=== PATIENT | female | born 1995 | race Caucasian/White ===

== ENCOUNTER 2023-10-03 14:44 | Emergency (ER) | payer MEDICAID, SELFPAY ==
--- NOTE | ~2023-10-03 | US_ITS ---
EXAMINATION: US OB <=14 wk fetus w TV INDICATION: 8 weeks, bleeding/cramping TECHNIQUE: Sonography of the pelvis was performed by transabdominal and transvaginal techniques. COMPARISON: None. RESULT: Uterus: 10.0 x 4.8 x 6.5 cm. Anteverted. Endometrial complex thickness 1.2 cm, somewhat irregular. Ho mogenous myometrium. Intrauterine gestational sac: Not seen. Embryo: Not seen. Right ovary: 3.4 x 1.7 x 3.0 cm. Vascular flow is present. No adnexal mass. Left ovary: 3.8 x 1.7 x 1.4 cm. Vascular flow is present. No adnexal mass. Pelvis free fluid: None. IMPRESSION: of unknown location. Findings are suspicious for but not diagnostic of failed , ba sed on the LMP and clinical history. No sonographic findings of ectopic . Recommend close clinical and laboratory follow-up and follow-up sonography as clinically indicated. Reviewed, dictated and finalized at location K. IMPRESSION: of unknown location. Findings are suspicious for but not diagnostic o f failed , based on the LMP and clinical history. No sonographic findings of ectopic . Recommend close clinical and laboratory follow-up and follow-up sonography as c linically indicated.
[2023-10-03 15:13] VITALS: BP 107/61; PULSE 77; RESP 16; TEMP 36.4; O2SAT 100
--- NOTE | 2023-10-03 16:08 | ED.PREGNANCY ---
HPI - General Chief complaint: Vaginal Bleeding <GEETA Collins Last Filed: 10/03/23 16:15> Stated complaint: abdominal cramping <GEETA Collins Last Filed: 10/03/23 16:15> Time Seen by Provider: 10/03/23 16:08 <GEETA Collins Last Filed: 10/03/23 16:15> Focused HPI: Patient is a 27 y/o female who presents to the ED with c/o vaginal bleeding. Patient is , hx of miscarriage, approx 8 weeks gestation by LNMP. Reports she has had some intermittent mild cramping in her lower abdomen and lower back for the past 1 week. Last night, she began having vaginal bleeding with clots, has persisted since then. States bleeding has been heavy today, has gone through approx 7 pads. She has not had an US yet for this . Is scheduled to see Dr. Bowers with [facility] on 10/04. She denies fevers, dysuria, hematuria, N/V. GENERAL: Well-appearing, obese with BMI of 35.6, and in no acute distress. HEAD: Normocephalic, atraumatic. CHEST: Clear to auscultation. ?No respiratory distress. HEART: Regular rate and rhythm.? NEURO: ?Alert and oriented x3. Patient screened in triage and initial orders placed.? ?Additional care and disposition to be based upon?diagnostic testing and treatment. <GEETA Collins Last Filed: 10/03/23 16:15> Source: patient <GEETA Collins Last Filed: 10/03/23 16:15> Mode of arrival: ambulatory <GEETA Collins Last Filed: 10/03/23 16:15> Limitations: no limitations <GEETA Collins Last Filed: 10/03/23 16:15> Review of Systems Review of Systems: All systems as dictated in HPI <GEETA Kim Last Filed: 10/04/23 03:10> Exam Narrative: GENERAL: Well-appearing, well-nourished, and in no acute distress. HEAD: Normocephalic, atraumatic. EYES: PERRLA and EOMI. ENT: Nares clear, no rhinorrhea or epistaxis. Mucous membranes moist. Oropharynx without tonsillar hypertrophy exudate or other lesions. NECK: Supple. No adenopathy or masses. CHEST: No respiratory distress. Clear to auscultation. No wheezes rales or rhonchi HEART: Regular rate and rhythm. No murmur heard. Normal peripheral pulses. ABDOMEN: Soft, nontender, nondistended, normal active bowel sounds. MSK: Normal range of motion. No edema. SKIN: Warm, dry, no rash. NEURO: Alert and oriented x4. No focal deficits. PSYCH: Normal mood and affect. <GEETA Kim Filed: 10/04/23 03:10> Course Vital Signs Vital signs: Vital Signs Temperature 97.5 F L 10/03/23 15:13 Pulse Rate 77 10/03/23 15:13 Respiratory Rate 16 10/03/23 15:13 Blood Pressure 107/61 10/03/23 15:13 Pulse Oximetry 100 10/03/23 15:13 Temperature 98.1 F 10/03/23 19:50 Pulse Rate 69 10/03/23 19:50 Respiratory Rate 17 10/03/23 19:50 Blood Pressure 118/65 10/03/23 19:50 Pulse Oximetry 100 10/03/23 19:50 <GEETA Collins Filed: 10/03/23 16:15> Vital Signs Temperature 97.5 F L 10/03/23 15:13 Pulse Rate 77 10/03/23 15:13 Respiratory Rate 16 10/03/23 15:13 Blood Pressure 107/61 10/03/23 15:13 Pulse Oximetry 100 10/03/23 15:13 Temperature 98.1 F 10/03/23 19:50 Pulse Rate 69 10/03/23 19:50 Respiratory Rate 17 10/03/23 19:50 Blood Pressure 118/65 10/03/23 19:50 Pulse Oximetry 100 10/03/23 19:50 <GEETA Kim Filed: 10/04/23 03:10> MDM - OB/Uterine Contractions MDM Narrative Medical decision making narrative: MSE by [facility] in triage. <Megan Bess PA-C - Last Filed: 10/03/23 16:15> MSE by [facility] in triage. This is a 27-year-old female who is presenting for vaginal bleeding and around 8 weeks . Vitals are normal. Exam is benign overall. No evidence of significant hemorrhage. symptoms and presentation today are consistent with spontaneous miscarriage which she has had in the past.
[2023-10-03 16:34] LABS: Basophils Absolute Auto 0.1 K/mm3 (0.0-0.1); Basophils Percent Auto 0.7 % (0.2-1.2); Eosinophils Absolute Auto 0.2 K/mm3 (0-0.3); Hematocrit 38.6 % (37.0-47.0); Hemoglobin 13.2 g/dL (12.0-15.0); Immature Granulocyte Absolute 0.13 K/mm3 (0.00-0.031); Immature Granulocyte Percent A 1.1 % (0-0.5); Lymphocytes Absolute Auto 3.31 K/mm3 (0.9-3.2); Lymphocytes Percent Auto 27.3 % (18.3-44.2); Mean Corpuscular HGB Conc 34.2 g/dl (32-36); Mean Corpuscular Hemoglobin 32.1 pg (26-34); Mean Corpuscular Volume 93.9 fl (80-100); Mean Platelet Volume 9.6 fl (7.4-10.4); Monocytes Absolute Auto 0.8 K/mm3 (0.1-0.6); Monocytes Percent Auto 6.5 % (2.6-8.5); Neutrophils Absolute Auto 7.6 K/mm3 (1.3-6.7); Neutrophils Percent Auto 62.4 % (45.5-73.1); Platelet Count Result 238 k/mm3 (150-375); Red Blood Count 4.11 M/mm3 (4.2-5.4); Red Cell Distribution Width 11.7 % (11.5-14.5); White Blood Count 12.1 K/mm3 (4.5-10.0)
[2023-10-03 16:43] LABS: Alanine Aminotransferase 17 U/L (6-35); Albumin Level 4.1 g/dL (3.5-5.1); Alkaline Phosphatase 50 U/L (38-126); Anion Gap 10 mmol/L (4-12); Aspartate Amino Transferase 18 U/L (14-36); Bilirubin,Total 0.4 mg/dL (0.2-1.3); Blood Urea Nitrogen 4 mg/dL (7-17); Carbon Dioxide 25 mmol/L (22-30); Chloride 102 mmol/L (98-107); Estimated CRCL calculation 142 ml/min; Estimated Glomerular Filt Rate > 60; Glucose 94 mg/dL (65-110); Potassium 3.5 mmol/L (3.4-5.0); Sodium 137 mmol/L (137-145)
[2023-10-03 16:45] LABS: Prothrombin Time 13.6 Seconds (11.1-14.7)
[2023-10-03 17:14] LABS: Bacteria Urine 4+ /hpf; Need Manual Microscopic Reviewed; RBC Urine >100 /hpf (0-2); Squamous Epithelial Cell Urine Many /hpf (Few); WBC Urine >100 /hpf (0-3)
[2023-10-03 17:16] LABS: Add Urine Microscopic? YES; Appearance Urine Turbid (Clear); Bilirubin Urine 2+ (Negative); Blood Urine 3+ (Negative); Color Urine Red (Yellow); Glucose Urine UA Negative (Negative); Ketones Urine Negative (Negative); Leukocyte Esterase Ur 2+ LEU/UL (Negative); Nitrate Urine Negative (Negative); Protein Urine 3+ mg/dL (Negative); Specific Grav Ur 1.025 (1.001-1.035); Urobilinogen Urine 0.2 mg/dL (<2.0)
[2023-10-03 18:37] VITALS: BP 124/70; PULSE 60; RESP 16; O2SAT 98
--- NOTE | 2023-10-03 19:24 | PC.NURSE ---
Assumed care of pt from KELSEY Perez at this time. Pt resting in bed w call light within reach.
[2023-10-03 19:50] VITALS: BP 118/65; PULSE 69; RESP 17; TEMP 36.7; O2SAT 100
== END 2023-10-03 19:52 | disposition home or self-care (01) ==
PROVIDERS: Physician Assistant; Emergency Provider Physician Assistant
DX: O03.9 Complete or unspecified spontaneous abortion without complication (principal)
CPT/HCPCS: 36415; 76801; 76817; 80053; 81001; 84702; 85025; 85461; 85610; 85730; 86850; 86900; 86901; 87086; 99284